=== PATIENT | male | born 1960 | race Two or more races ===

== ENCOUNTER → 2016-12-19 19:44 | Emergency (ER) | payer OTHER ==
[~2016-12-19 19:44] MED LIST: Aspirin Low Dose CHEW TAB* 81 MG PO ONE; Calcium CHLORIDE 10% SYRINGE* 1 GM/10 ML IV ONE; Dextrose 50% Syringe 50 ML* 25 GM/50 ML SYRINGE IV PUSH ONE; Insulin REGULAR(*) 1 UNITS UNIT IV PUSH ONE; Sodium Bicarbonate 8.4% IV* 50 ML VIAL IV ONE
--- NOTE | 2016-12-19 20:51 | RAD ---
INDICATION: Weakness COMPARISON: February 26, 2016 TECHNIQUE: An AP portable view obtained at 2050 hours is submitted. FINDINGS: Bones/Soft Tissues: There are no acute bony findings. There is sternotomy Cardiomediastinal: The correct silhouette, central pulmonary vessels, and interstitium are mildly prominent consistent with mild interstitial congestion. Lungs: There are no focal infiltrates. Pleura: There are no significance pleural effusions. Other: None IMPRESSION: MILD VASCULAR CONGESTION
[2016-12-19 22:06] LABS: Hematocrit 32 % (42-52); Hemoglobin 10.6 g/dl (14.0-18.0); Mean Corpuscular HGB Conc 33 g/dl (31-36); Mean Corpuscular Hemoglobin 26 pg (27-31); Mean Corpuscular Volume 80 fL (80-94); Mean Platelet Volume 10 um3 (7.4-10.4); Red Blood Count 4.02 10^6/ul (4.0-5.4); Red Cell Distribution Width 18 % (10.5-15); White Blood Count 8.3 10^3/ul (3.5-10.8)
[2016-12-19 22:08] LABS: Albumin 3.7 g/dL (3.2-5.2); BUN/Creatinine Ratio 12.3 (8-20); Calcium 8.2 mg/dL (8.6-10.3); EGFR African American 8.3 (>60); EGFR Non-African American 6.4 (>60); Globulin 4.1 g/dL (2-4); Total Bilirubin 0.3 mg/dL (0.2-1.0); Total Protein 7.8 g/dL (6.4-8.9)
[2016-12-19 22:19] LABS: Troponin I 0.05 ng/mL (<0.04)
[2016-12-19 22:50] LABS: Potassium 6.8 mmol/L (3.5-5.0)
--- NOTE | 2016-12-19 23:52 | ED ---
Vee Schafer Thomas, scribed for Arlette Bourgeois MD on 12/19/16 at 2158 . Neurological HPI - HPI Summary HPI Summary: The pt is a 56 y/o M presenting with unspecific neurological deficits that began two days ago, 12/17/16. He says I cannot handle my nerves, my body I cannot talk and I have no strength. He has expressive aphasia. He says he is somewhat short of breath. He says that he frequently falls. During the examination, he bit his tongue in the left anterior while speaking. Per guards, this is the second or third time he has bit his tongue in the ED. He denies PELLETIER and CP. He had a cardiac catheterization with stents performed at [facility] on 12/14/16. Per group home guards, the patient has not been talking well since the stent placements. He is an inmate at [facility] and is accompanied by two group home guards. Elisa with identification number [id number] interpreted Swedish language during the initial examination. Records from [facility] reviewed. - History of Current Complaint Chief Complaint: EDWeakness Stated Complaint: POSSIBLE RENAL FAILURE Time Seen by Provider: 12/19/16 21:08 Hx Obtained From: Patient, Other: - Two group home guards present Onset/Duration: Started days ago - onset two days ago, Still Present Timing: Constant Onset Severity: Moderate Current Severity: Severe Pain Intensity: 0 Pain Scale Used: 0-10 Numeric Character: Weak, Impaired Speech, Other: - "cannot handle nerves", "cannot talk ", "no strength" myoclonic jerks Aggravating: Nothing Alleviating: Nothing Associated Signs and Symptoms: Positive: Weakness, Impaired Speech, Nausea/ Vomiting, Shortness of Breath - somewhat. Negative: Headache, Chest Pain TPA Considered: No - no last known well, sxs for 2 days at least - Allergy/Home Medications Allergies/Adverse Reactions: Allergies Allergy/AdvReac Type Severity Reaction Status Date / Time No Known Allergies Allergy Verified 02/26/16 12:12 PMH/Surg Hx/FS Hx/Imm Hx Previously Healthy: No Endocrine/Hematology History: Reports: Hx Diabetes, Hx Thyroid Disease Cardiovascular History: Reports: Hx Angina, Hx Coronary Artery Disease, Hx Hypercholesterolemia, Hx Hypertension, Hx Myocardial Infarction Denies: Hx Peripheral Vascular Disease Respiratory History: Denies: Hx Asthma History: Reports: Hx Chronic Renal Failure Musculoskeletal History: Denies: Hx Arthritis, Hx Osteoporosis Neurological History: Denies: Hx Headaches, Hx Seizures, Hx Transient Ischemic Attacks (TIA) Psychiatric History: Reports: Hx Depression - Surgical History Surgery Procedure, Year, and Place: CABG 2006 - Immunization History Immunizations Up to Date: Yes Infectious Disease History: No Infectious Disease History: Denies: Traveled Outside the [place] in Last 30 Days - Family History Known Family History: Positive: Diabetes - Social History Alcohol Use: None Substance Use Type: Reports: None Substance Use Comment - Amount & Last Used: Previous IV drug use Hx Tobacco Use: Yes Smoking Status (MU): Current Every Day Smoker Type: Cigarettes Amount Used/How Often: 10 cigarettes per day Review of Systems Positive: Fatigue Positive: Other - Bit his tongue, hoarse voice Negative: Chest Pain Positive: Shortness Of Breath Positive: Nausea Positive: Edema Skin: Negative Neurological: Other - Neurological symptoms as described in HPI (onset two days ago), Expressive aphasia, Frequent falls, myoclonic jerks Negative: Headache Psychological: Normal All Other Systems Reviewed And Are Negative: Yes Physical Exam Triage Information Reviewed: Yes Vital Signs On Initial Exam: Initial Vitals Temp Pulse Resp BP Pulse Ox 97.8 F 66 18 151/69 98 12/19/16 20:04 12/19/16 20:04 12/19/16 20:04 12/19/16 20:04 12/19/16 20:04 Vital Signs Reviewed: Yes Appearance: Positive: Well-Appearing, Well-Nourished, Pain Distress Skin: Positive: Warm, Skin Color Reflects Adequate Perfusion, Other - no fistula or graft for dialysis Head/Face: Positive: Normal Head/Face Inspection Eyes: Positive: Conjunctiva Clear ENT: Positive: Normal ENT inspection Neck: Positive: Supple, Nontender, No Lymphadenopathy Respiratory/Lung Sounds: Positive: Clear to Auscultation, Breath Sounds Present , Other - No respiratory distress Cardiovascular: Positive: RRR, Pulses are Symmetrical in both Upper and Lower Extremities, Leg Edema Left, Leg Edema Right, Other - Brisk cap refill. Negative: Murmur Abdomen Description: Positive: Nontender, No Organomegaly, Soft Bowel Sounds: Positive: Present Musculoskeletal: Positive: Strength/ROM Intact, Edema Left, Edema Right Neurological: Positive: Sensory/Motor Intact, Alert, Oriented to Person Place, Time, CN Intact II-III, Expressive Aphasia, Dysarthric Aphasia, Facial Symmetry Psychiatric: Positive: Normal - Connie Coma Scale Coma Scale Total: 15 Diagnostics - Vital Signs Vital Signs Temp Pulse Resp BP Pulse Ox 12/19/16 20:43 97 12/19/16 20:04 97.8 F 66 18 151/69 98 - Laboratory Lab Results: Lab Results 12/19/16 12/19/16 12/19/16 Range/Units 21:23 21:23 21:23 WBC 8.3 (3.5-10.8) 10^3/ul RBC 4.02 (4.0-5.4) 10^6/ul Hgb 10.6 L (14.0-18.0) g/dl Hct 32 L (42-52) % MCV 80 (80-94) fL MCH 26 L (27-31) pg MCHC 33 (31-36) g/dl RDW 18 H (10.5-15) % Plt Count 195 (150-450) 10^3/ul MPV 10 (7.4-10.4) um3 Neut % (Auto) 67.2 (38-83) % Lymph % (Auto) 19.2 L (25-47) % Beaver % (Auto) 6.8 (1-9) % Eos % (Auto) 5.9 (0-6) % Baso % (Auto) 0.9 (0-2) % Absolute Neuts (auto) 5.6 (1.5-7.7) 10^3/ul Absolute Lymphs (auto) 1.6 (1.0-4.8) 10^3/ul Absolute Monos (auto) 0.6 (0-0.8) 10^3/ul Absolute Eos (auto) 0.5 (0-0.6) 10^3/ul Absolute Basos (auto) 0.1 (0-0.2) 10^3/ul Absolute Nucleated RBC 0.01 10^3/ul Nucleated RBC % 0.1 Sodium 127 L (133-145) mmol/L Potassium 6.8 H* (3.5-5.0) mmol/L Chloride 96 L (101-111) mmol/L Carbon Dioxide 19 L (22-32) mmol/L Anion Gap 12 H (2-11) mmol/L BUN 105 H (6-24) mg/dL Creatinine 8.56 H (0.67-1.17) mg/dL Est GFR ( Amer) 8.3 (>60) Est GFR (Non-Af Amer) 6.4 (>60) BUN/Creatinine Ratio 12.3 (8-20) Glucose 266 H (70-100) mg/dL Lactic Acid 0.8 (0.5-2.0) mmol/L Calcium 8.2 L (8.6-10.3) mg/dL Total Bilirubin 0.30 (0.2-1.0) mg/dL AST 9 L (13-39) U/L ALT 11 (7-52) U/L Alkaline Phosphatase 114 H (34-104) U/L Ammonia (16-53) mol/L Troponin I 0.05 H* (<0.04) ng/mL Total Protein 7.8 (6.4-8.9) g/dL Albumin 3.7 (3.2-5.2) g/dL Globulin 4.1 H (2-4) g/dL Albumin/Globulin Ratio 0.9 L (1-3) 12/19/16 Range/Units 21:23 WBC (3.5-10.8) 10^3/ul RBC (4.0-5.4) 10^6/ul Hgb (14.0-18.0) g/dl Hct (42-52) % MCV (80-94) fL MCH (27-31) pg MCHC (31-36) g/dl RDW (10.5-15) % Plt Count (150-450) 10^3/ul MPV (7.4-10.4) um3 Neut % (Auto) (38-83) % Lymph % (Auto) (25-47) % Beaver % (Auto) (1-9) % Eos % (Auto) (0-6) % Baso % (Auto) (0-2) % Absolute Neuts (auto) (1.5-7.7) 10^3/ul Absolute Lymphs (auto) (1.0-4.8) 10^3/ul Absolute Monos (auto) (0-0.8) 10^3/ul Absolute Eos (auto) (0-0.6) 10^3/ul Absolute Basos (auto) (0-0.2) 10^3/ul Absolute Nucleated RBC 10^3/ul Nucleated RBC % Sodium (133-145) mmol/L Potassium (3.5-5.0) mmol/L Chloride (101-111) mmol/L Carbon Dioxide (22-32) mmol/L Anion Gap (2-11) mmol/L BUN (6-24) mg/dL Creatinine (0.67-1.17) mg/dL Est GFR ( Amer) (>60) Est GFR (Non-Af Amer) (>60) BUN/Creatinine Ratio (8-20) Glucose (70-100) mg/dL Lactic Acid (0.5-2.0) mmol/L Calcium (8.6-10.3) mg/dL Total Bilirubin (0.2-1.0) mg/dL AST (13-39) U/L ALT (7-52) U/L Alkaline Phosphatase (34-104) U/L Ammonia 33 (16-53) mol/L Troponin I (<0.04) ng/mL Total Protein (6.4-8.9) g/dL Albumin (3.2-5.2) g/dL Globulin (2-4) g/dL Albumin/Globulin Ratio (1-3) Result Diagrams: 12/19/16 21:23 12/19/16 21:23 Lab Statement: Any lab studies that have been ordered have been reviewed, and results considered in the medical decision making process. - Radiology CXR Xray Interpretation: No Acute Changes - Mild vascular congestion. ED physician has reviewed this report and agrees. Radiology Interpretation Completed By: Radiologist - CT CT Brain CT Interpretation: No Acute Changes - No evidence for acute pathology. ED physician has read this report and agrees. CT Interpretation Completed By: Radiologist - EKG 20:59 Cardiac Rate: NL - at 68 BPM. Prolonged AV conduction (200), Nml IV/QTc. L axis (-36). LVH with secondary strain. EKG Rhythm: Sinus Rhythm EKG Comparison: Other - Compared with 02/27/16, first degree AV block is new. No other significant changes. Re-Evaluation - Re-Evaluation First Eval Re-Evaluation Time: 23:30 Change: Unchanged - no chest pain, no new neuro symptoms. advised accepted for transfer to [facility] Course/Dx - Course Course Of Treatment: High blood pressure noted. Patients medications reviewed this visit. Calcium chloride, glucose, insulin and bicarbonate given for K+6.8. Past medical records show that on 04/29/16 the patient's BUN was 45 and creatinine was 2.2. Assessment/Plan: The pt is a 56 y/o M presenting with unspecific neurological deficits that began two days ago. He denies PELLETIER and CP. He had a cardiac catheterization with stents performed at [facility] on 12/14/16. Patients medication reviewed this visit. Blood pressure noted. Bloodwork was obtained with results earlier in this report. CXR shows mild vascular congestion. ED physician has reviewed this report and agrees. CT Brain is negative for acute disease. ED MD reviewed this CT and agrees. I consulted with Dr. Duran, who recommends transfer of the patient because Dr. Ni is not non destructive testing specialist for new patients. I spoke with Dr. Robb, emergency medicine physician at [facility], regarding the transfer. The patient will be transferred to [facility] ED via ambulance. - Differential Dx Differential Diagnoses Neuro: Positive: Cerebrovascular Accident, Hypoglycemia, Metabolic Abnormality, Seizure Disorder, Transient Ischemic Attack - Diagnoses Provider Diagnoses: Renal failure, Elevated troponin, Aphasia - Physician Notifications Discussed Care Of Patient With: Antonio Duran Time Discussed With Above Provider: 22:58 Instructed by Provider To: Transfer - I consulted with Dr. Duran, sulfonator operator, regarding patient care. He advises to transfer the [facility]. Ni is not non destructive testing specialist for new patients. He suggests transfer to the facility where the patient was previously treated. I spoke with Lu, nurse from [facility], [place], at 23:06. I spoke with Dr. Robb, emergency medicine physician from [facility], at 23:20. Reason For Transfer: Specialty or service not available at [facility]. - pt is not an established dialysis pt of Dr. Ni, has not had dialysis yet. Was at [facility] 12/14/16, continuity of care - Critical Care Time Critical Care Time: 30-74 min - 30 minutes Discharge - Discharge Plan Condition: Guarded Disposition: TRANS HIGHER LVL OF CARE FAC Discharge Disposition Comment: Transferred to [facility] for higher level of care. Referrals: No Primary Care Phys,NOPCP [Primary Care Provider] - The documentation as recorded by the Vee davenport Thomas accurately reflects the service I personally performed and the decisions made by , Arlette Bourgeois MD.
[2016-12-20 00:02] VITALS: BP 141/74
--- NOTE | 2016-12-20 07:48 | RAD ---
HISTORY: Expressive aphasia, renal failure COMPARISONS: None TECHNIQUE: Multiple contiguous axial CT scans were obtained of the head without intravenous contrast. FINDINGS: HEMORRHAGE/INFARCT: There is no hemorrhage or acute infarct. MASSES/SHIFT: There is no mass or shift. EXTRA-AXIAL SPACES: There are no extra-axial fluid collections. SULCI AND VENTRICLES: The sulci and ventricles are normal in size and position for the patient's stated age. CEREBRUM: There are no focal parenchymal abnormalities. BRAINSTEM: There are no focal parenchymal abnormalities. CEREBELLUM: There are no focal parenchymal abnormalities. VESSELS: There is calcification of the cavernous segments of the internal carotid arteries bilaterally and of the distal vertebral arteries bilaterally. PARANASAL SINUSES: There is mucosal thickening of the right maxillary sinus. ORBITS: There is bilateral proptosis. There is no retrobulbar mass. BONES AND SOFT TISSUE: No bone or soft tissue abnormalities are noted. OTHER: None IMPRESSION: NO ACUTE INTRACRANIAL PATHOLOGY. BILATERAL PROPTOSIS
== END | disposition short-term general hospital (02) ==
LOC: ED 19:44
DX: N19 Unspecified kidney failure (principal); R79.89 Other specified abnormal findings of blood chemistry; R47.01 Aphasia; R53.1 Weakness; R11.2 Nausea with vomiting, unspecified; R06.02 Shortness of breath; R53.83 Other fatigue; F17.210 Nicotine dependence, cigarettes, uncomplicated
CPT/HCPCS: 36415; 70450; 71010; 80053; 82140; 83605; 84484; 85025; 93005; 96374; 96375; 99285; A9270-GY